=== PATIENT | female | born 1990 ===

== ENCOUNTER → 2020-10-19 | Outpatient (CLI) | payer OTHER ==
[~2020-10-19] MED LIST: PRENA1 TRUE CO1 EAC1 PO
== END | disposition home or self-care (01) ==
LOC: LAB SHORT 11:58 → LAB 11:58
DX: Z33.1 Pregnant state, incidental (principal)
CPT/HCPCS: 87081; 87150

== ENCOUNTER 2020-11-19 19:58 | Inpatient (IN) | payer OTHER ==
[~2020-11-19] VITALS: Ht 154.9 cm; Wt 72.0 kg
[2020-11-19] MEDS ORDERED: PRENA1 TRUE CO1 EAC1 PO (20:22)
[2020-11-19 20:44] LABS: BASOPHILS ABSOLUTE AUTO 0.04 K/mm3 (0.00-0.23); BASOPHILS PERCENT AUTO 0 % (0-2); EOSINOPHILS ABSOLUTE AUTO 0.14 K/mm3 (0.00-0.68); EOSINOPHILS PERCENT AUTO 1 % (0-6); Hematocrit 35.3 % (33.0-51.0); Hemoglobin 12.4 g/dL (11.5-16.0); IMMATURE GRAN ABSOLUTE AUTO 0.04 K/mm3 (0.00-0.10); IMMATURE GRAN PERCENT AUTO 0 % (0-1); LYMPHOCYTES ABSOLUTE AUTO 1.62 K/mm3 (0.84-5.20); LYMPHOCYTES PERCENT AUTO 15 % (21-46); MONOCYTES ABSOLUTE AUTO 0.56 K/mm3 (0.16-1.47); MONOCYTES PERCENT AUTO 5 % (4-13); Mean Corpuscular HGB 31.6 pg (26.0-34.0); Mean Corpuscular HGB Conc 35.1 g/dL (31.5-36.5); Mean Corpuscular Volume 90 fL (80-100); Mean Platelet Volume 11.6 fL (9.1-12.4); NEUTROPHILS ABSOLUTE AUTO 8.32 K/mm3 (1.96-9.15); NEUTROPHILS PERCENT AUTO 78 % (41-73); Platelet Count 160 K/mm3 (150-400); RDW Coefficient Variation 12.7 % (11.7-14.2); RDW Standard Deviation 41.5 fL (35.1-46.3); Red Blood Cell Count 3.92 M/mm3 (3.80-5.20); White Blood Cell Count 10.72 K/mm3 (4.00-11.30)
[2020-11-21 05:29] LABS: Hematocrit 37.8 % (33.0-51.0); Hemoglobin 12.8 g/dL (11.5-16.0); Mean Corpuscular HGB 30.9 pg (26.0-34.0); Mean Corpuscular HGB Conc 33.9 g/dL (31.5-36.5); Mean Corpuscular Volume 91 fL (80-100); Mean Platelet Volume 11.7 fL (9.1-12.4); Platelet Count 146 K/mm3 (150-400); RDW Coefficient Variation 12.8 % (11.7-14.2); RDW Standard Deviation 42.4 fL (35.1-46.3); Red Blood Cell Count 4.14 M/mm3 (3.80-5.20); White Blood Cell Count 13.35 K/mm3 (4.00-11.30)
--- NOTE | 2020-11-21 09:00 | NUR ---
DISCOMFORT AT EPIDURAL SITE, LOOKS WITHIN NORMAL LIMITS. HEATING PAD GIVEN FOR COMFORT. PERINEUM MINIMUAL SWELLING. ICE DIAPER GIVEN.
== END 2020-11-21 21:42 | disposition home or self-care (01) | DRG 807 ==
LOC: OBS 19:58 → BC 20:00 → OBS 20:04 → BC 20:05
PROVIDERS: ADMIT Advanced Practice Midwife
PROC: 10E0XZZ Delivery of Products of Conception, External Approach (ICD-10-PCS; principal; 2020-11-20)
PROC: 0KQM0ZZ Repair Perineum Muscle, Open Approach (ICD-10-PCS; 2020-11-20)
PROC: 10907ZC Drainage of Amniotic Fluid, Therapeutic from Products of Conception, Via Natural or Artificial Opening (ICD-10-PCS; 2020-11-20)
PROC: 3E033VJ Introduction of Other Hormone into Peripheral Vein, Percutaneous Approach (ICD-10-PCS; 2020-11-20)
PROC: 3E0R3BZ Introduction of Anesthetic Agent into Spinal Canal, Percutaneous Approach (ICD-10-PCS; 2020-11-20)
PROC: 00HU33Z Insertion of Infusion Device into Spinal Canal, Percutaneous Approach (ICD-10-PCS; 2020-11-20)
PROC: 3E0234Z Introduction of Serum, Toxoid and Vaccine into Muscle, Percutaneous Approach (ICD-10-PCS; 2020-11-20)
DX: O48.0 Post-term pregnancy (principal); Z37.0 Single live birth; Z3A.40 40 weeks gestation of pregnancy; O99.824 Streptococcus B carrier state complicating childbirth; O70.1 Second degree perineal laceration during delivery; H91.90 Unspecified hearing loss, unspecified ear; O99.892 Other specified diseases and conditions complicating childbirth; O26.893 Other specified pregnancy related conditions, third trimester; Z67.11 Type A blood, Rh negative; Z87.891 Personal history of nicotine dependence; Z98.890 Other specified postprocedural states; Z79.899 Other long term (current) drug therapy
CPT/HCPCS: 36415; 51702; 85025; 85027; 85460; 86850; 86900; 86901; A9270; J0290; J1885; J2001; J2210; J2405; J2590; J2791; J3010; J7120

== ENCOUNTER → 2022-01-31 | Outpatient (CLI) | payer OTHER | END | disposition home or self-care (01) | LOC: LAB 10:52 | DX: Z01.419 Encounter for gynecological examination (general) (routine) without abnormal findings (principal) ==

== ENCOUNTER 2024-06-24 12:22 | Day surgery (SDC) | payer OTHER ==
[~2024-06-24] VITALS: Ht 152.4 cm; Wt 49.4 kg
[~2024-06-24 12:22] MED LIST changes: +Lactated Ringer's 1,000 ML IV ONE; +propofoL 50 ML IV ONE
[2024-06-24] MEDS ORDERED: Ondansetron HCl 2 MG / ML 2ML Vial ONE (12:45)
[2024-06-24] MEDS ORDERED: Lactated Ringer's 1,000 ML IV ONE ×2 (13:27→14:16)
[2024-06-24] MEDS ORDERED: Midazolam HCL 1 MG/ML 5MLVIAL ONE (13:33)
[2024-06-24] MEDS ORDERED: propofoL 50 ML IV ONE (14:46)
[2024-06-24 15:23] VITALS: BP 101/72
== END 2024-06-24 15:21 | disposition home or self-care (01) ==
LOC: ORSCSDS 12:22
PROVIDERS: Surgery
PROC: 0DBN8ZX Excision of Sigmoid Colon, Via Natural or Artificial Opening Endoscopic, Diagnostic (ICD-10-PCS; principal; 2024-06-24 13:45)
PROC: 0DBB8ZX Excision of Ileum, Via Natural or Artificial Opening Endoscopic, Diagnostic (ICD-10-PCS; principal; 2024-06-24 13:45)
PROC: 0DBE8ZX Excision of Large Intestine, Via Natural or Artificial Opening Endoscopic, Diagnostic (ICD-10-PCS; principal; 2024-06-24 13:45)
PROC: 0DB98ZX Excision of Duodenum, Via Natural or Artificial Opening Endoscopic, Diagnostic (ICD-10-PCS; principal; 2024-06-24 13:45)
PROC: 0DB68ZX Excision of Stomach, Via Natural or Artificial Opening Endoscopic, Diagnostic (ICD-10-PCS; principal; 2024-06-24 13:45)
PROC: 0DBM8ZX Excision of Descending Colon, Via Natural or Artificial Opening Endoscopic, Diagnostic (ICD-10-PCS; principal; 2024-06-24 13:45)
DX: L29.0 Pruritus ani (principal); K63.5 Polyp of colon; K64.4 Residual hemorrhoidal skin tags; K29.70 Gastritis, unspecified, without bleeding; R10.84 Generalized abdominal pain; R11.0 Nausea; K60.2 Anal fissure, unspecified; F41.9 Anxiety disorder, unspecified; I12.9 Hypertensive chronic kidney disease with stage 1 through stage 4 chronic kidney disease, or unspecified chronic kidney disease; N18.9 Chronic kidney disease, unspecified; Z86.73 Personal history of transient ischemic attack (TIA), and cerebral infarction without residual deficits
CPT/HCPCS: 88305; 88342; J2250; J2405; J2704; J7120

== ENCOUNTER → 2025-05-17 | Outpatient (CLI) | payer OTHER ==
[~2025-05-17] MED LIST changes: -Lactated Ringer's 1,000 ML IV ONE; -propofoL 50 ML IV ONE
== END | disposition home or self-care (01) ==
LOC: LAB SHORT 11:48 → LAB 11:48
DX: O09.529 Supervision of elderly multigravida, unspecified trimester (principal)
CPT/HCPCS: 87081; 87150

== ENCOUNTER 2025-06-12 19:31 | Inpatient (IN) | payer OTHER ==
[~2025-06-12] VITALS: Ht 154.9 cm; Wt 72.7 kg
[2025-06-12 19:52] VITALS: BP 119/76
[2025-06-12] MEDS ORDERED: Methylergonovine Maleate 0.2MG / ML 1ML Amp IM PRN (20:25)
[2025-06-12] MEDS ORDERED: FentaNYL 2mcg/ml-Bup 0.1% Epd 250 ML EPI PRN (20:25)
[2025-06-12] MEDS ORDERED: Oxytocin 10 Unit / ML Vial IM PRN (20:25)
[2025-06-12] MEDS ORDERED: Ondansetron HCl 2 MG / ML 2ML Vial IV PRN (20:25)
[2025-06-12] MEDS ORDERED: Tranexamic Acid 100 ML IV SCH (20:25)
[2025-06-12] MEDS ORDERED: Carboprost Tromethamine 250 MCG/ML 1ML Amp IM PRN (20:25)
[2025-06-12] MEDS ORDERED: ePHEDrine Sulfate 50 MG/ML 1ML Injection XX PRN (20:25)
[2025-06-12] MEDS ORDERED: OXYTOCIN/RINGER'S LACTATE 500 ML IV PRN (20:25)
[2025-06-12] MEDS ORDERED: FentaNYL Citrate 50 MCG/ML 2 ML Injection IV PRN (20:30)
[2025-06-12] MEDS ORDERED: PRENATAL 19 TA1 EAC3 PO (21:21)
[2025-06-12 21:39] VITALS: BP 122/78
[2025-06-12 21:48] LABS: BASOPHILS ABSOLUTE AUTO 0.03 K/mm3 (0.00-0.23); BASOPHILS PERCENT AUTO 0 % (0-2); EOSINOPHILS ABSOLUTE AUTO 0.12 K/mm3 (0.00-0.68); EOSINOPHILS PERCENT AUTO 1 % (0-6); Hematocrit 36.0 % (33.0-51.0); Hemoglobin 12.4 g/dL (11.5-16.0); IMMATURE GRAN ABSOLUTE AUTO 0.03 K/mm3 (0.00-0.10); IMMATURE GRAN PERCENT AUTO 0 % (0-1); LYMPHOCYTES ABSOLUTE AUTO 1.76 K/mm3 (0.84-5.20); LYMPHOCYTES PERCENT AUTO 17 % (21-46); MONOCYTES ABSOLUTE AUTO 0.58 K/mm3 (0.16-1.47); MONOCYTES PERCENT AUTO 6 % (4-13); Mean Corpuscular HGB Conc 34.4 g/dL (31.5-36.5); Mean Corpuscular Volume 89 fL (80-100); NEUTROPHILS ABSOLUTE AUTO 7.86 K/mm3 (1.96-9.15); NEUTROPHILS PERCENT AUTO 76 % (41-73); NRBC ABSOLUTE 0.00 K/mm3 (0.00-0.02); NRBC Auto 0.0 /100 WBC (0.0-0.2); Platelet Count 180 K/mm3 (150-400); RDW Coefficient Variation 12.3 % (11.7-14.2); RDW Standard Deviation 40.5 fL (35.1-46.3)
[2025-06-13] VITALS (71 sets, daily range): BP systolic 88–182; BP diastolic 50–97
[2025-06-13] MEDS ORDERED: ePHEDrine Sulfate 50 MG/ML 1ML Injection IV PRN (09:40)
[2025-06-13] MEDS ORDERED: DiphenhydrAMINE HCl 50 MG/ML 1ML Vial IV PRN (09:40)
[2025-06-13] MEDS ORDERED: Ondansetron HCl 2 MG / ML 2ML Vial IV PRN (09:40)
[2025-06-13] MEDS ORDERED: Naloxone HCl 0.4MG / ML 1ML Vial IV PRN (09:40)
[2025-06-13] MEDS ORDERED: Methylergonovine Maleate 0.2MG / ML 1ML Amp IM PRN (23:35)
[2025-06-13] MEDS ORDERED: Ketorolac Tromethamine 30mg Vial IV PRN (23:40)
[2025-06-13] MEDS ORDERED: Rho(D) Immune Globulin 300 MCG / SYR IM SCH (23:40)
[2025-06-13] MEDS ORDERED: Oxytocin 10 Unit / ML Vial IM ONE (23:40)
[2025-06-13] MEDS ORDERED: OXYTOCIN/RINGER'S LACTATE 500 ML IV SCH (23:40)
[2025-06-13] MEDS ORDERED: Benzocaine Topical Anesthetic Spray 60GM TOP PRN (23:45)
[2025-06-13] MEDS ORDERED: FLU VACC TS2025-26(6MOS UP)/PF 45 MCG/0.5 ML SYRINGE IM SCH (23:45)
[2025-06-13] MEDS ORDERED: Witch Hazel/Glycerin PADS TOP PRN (23:45)
[2025-06-13] MEDS ORDERED: Carboprost Tromethamine 250 MCG/ML 1ML Amp IM PRN (23:45)
[2025-06-14] VITALS (10 sets, daily range): BP systolic 116–140; BP diastolic 62–84
[2025-06-14] MEDS ORDERED: FLU VACC TS2025-26(6MOS UP)/PF 45 MCG/0.5 ML SYRINGE IM ONE (08:45)
[2025-06-14] MEDS ORDERED: Prenatal Vit/FE Fumarate/FA 1 Tab PO SCH (09:00)
== END 2025-06-14 23:43 | disposition home or self-care (01) | DRG 806 ==
LOC: OBS 19:31 → BC 19:38 → OBS 20:11 → BC 06-13 20:42
PROVIDERS: ADMIT Family Medicine
PROC: 3E03329 Introduction of Other Anti-infective into Peripheral Vein, Percutaneous Approach (ICD-10-PCS; 2025-06-12)
PROC: 10E0XZZ Delivery of Products of Conception, External Approach (ICD-10-PCS; principal; 2025-06-13)
PROC: 3E0R3BZ Introduction of Anesthetic Agent into Spinal Canal, Percutaneous Approach (ICD-10-PCS; 2025-06-13)
PROC: 00HU33Z Insertion of Infusion Device into Spinal Canal, Percutaneous Approach (ICD-10-PCS; 2025-06-13)
DX: O48.0 Post-term pregnancy (principal); N13.30 Unspecified hydronephrosis; Z37.0 Single live birth; O26.833 Pregnancy related renal disease, third trimester; Z3A.40 40 weeks gestation of pregnancy; O26.893 Other specified pregnancy related conditions, third trimester; Z67.41 Type O blood, Rh negative; O99.344 Other mental disorders complicating childbirth; F41.8 Other specified anxiety disorders; O70.0 First degree perineal laceration during delivery; N28.89 Other specified disorders of kidney and ureter; O99.892 Other specified diseases and conditions complicating childbirth
CPT/HCPCS: 36415; 51702; 59025; 85025; 85460; 86850; 86900; 86901; 99213; A9270; J1885; J2791; J3010; J7120